=== PATIENT | female | born 1935 | race Caucasian/White ===

== ENCOUNTER 2018-04-21 06:38 | Inpatient (IN) ==
[2018-04-21] MEDS ORDERED: CeFAZolin Syr 2,000MG/20 ML 2,000 MG/20 ML SYRINGE IVPB ONE (07:21)
[2018-04-21] MEDS ORDERED: Ringers Solution, Lactated 1,000 ML IVC SCH (07:30)
[2018-04-21] MEDS ORDERED: Gabapentin 300 MG CAPSULE PO ONE (07:38)
[2018-04-21] MEDS ORDERED: Celecoxib 100 MG CAPSULE PO ONE (07:38)
[2018-04-21] MEDS ORDERED: Acetaminophen IV 1,000 MG/100 ML INFUS..BTL IVPB ONE (07:38)
[2018-04-21] MEDS ORDERED: Famotidine 20 MG/2 ML VIAL IVP ONE (07:38)
--- NOTE | 2018-04-21 07:47 | Anesthesia Evaluation PreOp ---
Date of Encounter: 04/21/18 Time of Encounter: 07:44 - Past History Planned Operation: Bronch, R robotic thoracoscopy resection thymoma Cardiac History: HTN, Hyperlipidemia Pulmonary History: Former smoker (quit 1969), Other (mediastinal mass) SE[employer] [employer]ER History: Denies Any Significant HX Other Medical History: Renal (stones), GERD Anesthesia History: No Prior Anesthetic Complications, Past Anesthesia (bobby, partial knee replacement, kidney stones) : No Alcohol Use: none Drug use: none Medications and Allergies Aspirin [Lo-Dose Aspirin EC] 81 mg PO DAILY 04/21/18 [History] Atorvastatin Calcium [Lipitor] 20 mg PO HS 04/21/18 [History] Calcium Carbonate [Calcium] 500 mg PO DAILY 04/21/18 [History] Multivitamin [One Daily Multivitamin] 1 tab PO DAILY 04/21/18 [History] Pyridoxine HCl [Vitamin B-6] 100 mg PO DAILY 04/21/18 [History] Triamterene/HCTZ 37.5/25mg [Dyazide] 1 tab PO DAILY 04/21/18 [History] Allergy/AdvReac Type Severity Reaction Status Date / Time No Known Allergies Allergy Verified 04/21/18 07:18 - Meds/Allergy Pre-op Review Medications Reviewed: Yes Allergies Reviewed: Yes Beta Blockers on Current Med List: No Anesthesia Results - Labs Laboratory Tests 04/05/18 04/05/18 12:21 12:21 WBC 6.6 Hgb 14.8 Hct 44.6 Plt Count 224 Sodium 142 Potassium 4.4 Chloride 103 Carbon Dioxide 29 BUN 23 Creatinine 0.92 Est GFR (Non-Af Amer) 59 L - Imaging EKG: report reviewed Anesthesia Exam Vital Signs/O2 Sat/Glucose, Most Recent Temp Pulse Resp BP Pulse Ox 98.2 F 70 18 135/75 97 04/21/18 07:05 04/21/18 07:05 04/21/18 07:05 04/21/18 07:05 04/21/18 07:05 Weight: 68 kg NPO (# of Hours): > 8 hr - HEENT Pupil (Motor): Pupils equal Mallampati: II Teeth: Normal - [employer] [employer] LOC: Oriented SE[employer] [place] [employer] Motor: Normal RUE, Normal LUE, Normal RLE, Normal LLE, Normal Face [employer] [place] [employer] Sensory: Normal: RUE, LUE, RLE, LLE, Face - Cardiac Rhythm: Regular Murmur: None - Pulmonary Breath Sounds: bilateral Clear Respiratory Effort: Symmetrical Anesthesia Assess/Plan ASA Score: 2 Level of consciousness: Cooperative, Oriented Anesthetic Plan: General Monitoring Plan: Standard Monitors Recovery Plan: PACU
[2018-04-21] MEDS ORDERED: *HR* Labetalol 20 MG/4 ML SYRINGE IVP PRN (07:48)
[2018-04-21] MEDS ORDERED: Ondansetron 4 MG/2 ML VIAL IVP ONE (07:48)
[2018-04-21] MEDS ORDERED: *HR* OxyCODONE Immed Rel 5 MG TABLET PO PRN (07:48)
[2018-04-21] MEDS ORDERED: Albuterol 2.5 MG/3 ML NEBULIZER IH PRN (07:48)
[2018-04-21] MEDS ORDERED: *HR* Promethazine 25 MG/ML VIAL IVP PRN (07:48)
--- NOTE | 2018-04-21 07:54 | History & Physical Report ---
Date of Encounter: 04/21/18 Time of Encounter: 07:53 24 Hour HP Update - Instructions Instructions: If the History and Physical is less than 30 days old and was completed prior to A.M. admission and or procedure and has NOT been updated on calendar day of procedure please complete this update prior to performing procedure. - Update Patient reports changes in Medical Condition: No Changes in examination, assessment, or condition: No Changes in Medication: No Preop tests/diagnostics Reviewed: Yes Pre-Op MRSA Screen: Negative Surgery Remains Indicated: Yes Consent for Planned Operative Procedure(s) Verified: Yes - Pre-Operative Checklist Preoperative Checklist Indicated: Yes Prophylactic Antibiotic Ordered: Yes Home Medications Include Beta Ann-Marie: No Beta Ann-Marie Taken Today (Day of Surgery): No Beta Ann-Marie Taken Yesterday (Day Prior to Surgery): No Is VTE Prophylaxis Indicated?: Yes
[2018-04-21] MEDS ORDERED: *HR* FentaNYL (PF) 100 MCG/2 ML VIAL ONE (07:55)
[2018-04-21] MEDS ORDERED: *HR* Propofol 200 MG/20 ML VIAL IVP ONE (07:55)
[2018-04-21] MEDS ORDERED: *HR* Rocuronium Bromide 50 MG/5 ML VIAL ONE (07:59)
[2018-04-21] MEDS ORDERED: Lidocaine -MPF 2% 2 ML VIAL ONE (07:59)
[2018-04-21] MEDS ORDERED: SUGAMMADEX SODIUM 500 MG/5 ML VIAL IV ONE (08:34)
[2018-04-21] MEDS ORDERED: Dexamethasone 4 MG/ML VIAL ONE (08:44)
[2018-04-21] MEDS ORDERED: Ondansetron 4 MG/2 ML VIAL ONE (08:44)
[2018-04-21] MEDS ORDERED: NiCARdipine 2.5 MG/10 ML Syringe IVPB ONE (09:02)
[2018-04-21] MEDS ORDERED: *HR* Labetalol 100 MG/20 ML MDV ONE (09:06)
--- NOTE | 2018-04-21 10:36 | Operative Note ---
Date of procedure: 04/21/18 Pre-op diagnosis: thymoma Post-op diagnosis: other (potential thymic cancer) Procedure: bronchoscopy with aspiration robotic right thoracoscopy thymectomy with wedge resection left upper lobe Complications: none Anesthesia: GETA Local Anesthetics: 0.5% Sensorcaine HCL SubQ (cc) Surgeon: Benitez Hernandez Was there an assistant teaching professor present: No Estimated blood loss (cc): 25 Specimen: thymus with left upper lobe wedge resection Condition: stable Disposition: PACU Procedure in Detail: The patient was brought to the operating room and placed on the operating room table in the supine position. After undergoing general anesthesia with sequential compressive devices on bilateral lower extremities and perioperative antibiotics on board diagnostic bronchoscopy was performed place the double- lumen endotracheal tube from the right mainstem bronchus into the left mainstem bronchus for adequate ventilation. This then allowed us to evaluate the tracheobronchial tree and thick copious tenacious secretions evacuated from the tracheobronchial tree patient was placed dermis semi-left lateral decubitus position with care to pad all pressure points. Prepped and draped in the usual sterile fashion. 3 thoracoscopy ports were placed thymectomy performed from the right phrenic nerve over to the left phrenic nerve the diaphragm up to the thyroid thymic ligament the mass seen on CT scan in the thymus was palpated but was adherent to the left upper lobe so a generous wedge resection was obtained of the left upper lobe to ensure negative margins. Hemostasis was excellent 24- Occitan blade chest tube was placed from the right chest over the mediastinum into the left chest. Intercostal nerve blocks performed. The chest tube was secured in the place with silk suture and the incisions closed with 0 Vicryl sutures and 4-0 Monocryl subcuticular stitches. Hemostasis was excellent patient was extubated and taken to the recovery room.
[2018-04-21] MEDS: *HR* HYDROmorphone (PF) 1 MG/ML SYRINGE IVP PRN ×3 (10:50→11:25)
[2018-04-21] MEDS ORDERED: 0.9 % Sodium Chloride 500 ML ONE (10:52)
--- NOTE | 2018-04-21 11:40 | Anesthesia Evaluation Post Op ---
Date of Encounter: 04/21/18 Time of Encounter: 11:40 - Vital Signs Vital Signs: Vital Signs/O2 Sat/Glucose, Most Current Temp Pulse Resp BP Pulse Ox 04/21/18 11:31 71 16 147/77 99 04/21/18 11:21 98.1 F 70 16 154/74 98 04/21/18 11:11 68 18 153/90 98 04/21/18 11:01 97.6 F 68 18 165/85 98 04/21/18 10:51 67 16 178/74 97 04/21/18 10:41 97.2 F L 70 18 154/82 97 04/21/18 10:31 96.7 F L 68 16 122/89 96 - Lungs Lungs: Clear Ascult./Percussion - Airway Airway: Non-obstructed - Cardiovascular Regular Rate - Mental Status Mental Status: Alert & Oriented, Answers Appropriately - Pain Pain Scale: 1 - Nausea Vomiting Nausea Vomiting: Not Present - Hydration Hydration: Ice chips - Discharge PostOp Status: Transfer Patient to floor
[2018-04-21] MEDS ORDERED: Ondansetron 4 MG/2 ML VIAL IVP PRN (12:09)
[2018-04-21] MEDS: *HR* HYDROmorphone 20 MG/20 ML PCA IVC SCH (13:31)
[2018-04-21] MEDS: Gabapentin 100 MG CAPSULE PO SCH ×2 (16:19→20:30)
[2018-04-21] MEDS: 0.9 % Sodium Chloride 1,000 ML IVC SCH (20:30)
[2018-04-22 05:00] LABS: Basophils % 0.1 %; Hematocrit 34.7 % (35.3-44.9); Hemoglobin 11.8 g/dL (11.5-15.4); Immature Granulocytes % 0.2 % (0-4); Lymphocytes # 0.8 K/mcL (0.6-4.6); Lymphocytes % 9.5 %; Mean Corpuscular Hemoglobin 31.1 pg (28.0-33.3); Mean Corpuscular Volume 91.6 fL (83.0-100.0); Mean Platelet Volume 10.5 fL (9.4-12.4); Monocytes # 0.7 K/mcL (0.0-1.3); Neutrophils # 6.7 K/mcL (1.6-8.9); Platelet Count 167 K/mcL (140-400); Red Blood Count 3.79 M/mcL (3.82-4.97); Red Cell Distribution Width 13.3 % (11.5-14.5); Segmented Neutrophils % 81.2 %
[2018-04-22 05:22] LABS: BUN/Creatinine Ratio 28 (6-26); Blood Urea Nitrogen 24 mg/dL (8-23); Calcium 8.8 mg/dL (8.6-10.3); Carbon Dioxide 26 mEq/L (23-29); Chloride 106 mEq/L (98-107); Glucose 135 mg/dL (70-105); Osmolality,Calculated 294 (280-300); Potassium 4.5 mEq/L (3.5-5.1); Sodium 139 mEq/L (136-145); eGFR For Non-African Americans > 60 (> 60)
[2018-04-22] MEDS: 0.9 % Sodium Chloride 1,000 ML IVC SCH (08:53)
[2018-04-22] MEDS: Gabapentin 100 MG CAPSULE PO SCH ×2 (08:54→15:21)
[2018-04-22] MEDS ORDERED: Aspirin Enteric Coated 81 MG Tablet PO SCH (09:00)
[2018-04-22 10:39] VITALS: BP 152/77
--- NOTE | 2018-04-22 12:27 | Discharge Summary ---
Orders not resulted at time of discharge: Pending orders 04/21/18 10:04 Surgical Pathology [PTH] Routine 04/23/18 08:00 XR chest 1V [XR] DAILY Date of Encounter: 04/22/18 Time of Encounter: 12:24 - Discharge Diagnosis (1) Thymic cancer Priority: Primary Status: Acute - Hospital Course Hospital course: Ms. Goldsmith is a 83 year old female - Time Spent with Patient Total time spent providing and/or coordinating discharge services: - Discharge Medications Prescriptions: No Action Triamterene/HCTZ 37.5/25mg [Dyazide] 1 tab PO DAILY Pyridoxine HCl [Vitamin B-6] 100 mg PO DAILY Multivitamin [One Daily Multivitamin] 1 tab PO DAILY Calcium Carbonate [Calcium] 500 mg PO DAILY Atorvastatin Calcium [Lipitor] 20 mg PO HS Aspirin [Lo-Dose Aspirin EC] 81 mg PO DAILY Home Medications: Aspirin [Lo-Dose Aspirin EC] 81 mg PO DAILY 04/21/18 [History] Atorvastatin Calcium [Lipitor] 20 mg PO HS 04/21/18 [History] Calcium Carbonate [Calcium] 500 mg PO DAILY 04/21/18 [History] Multivitamin [One Daily Multivitamin] 1 tab PO DAILY 04/21/18 [History] Pyridoxine HCl [Vitamin B-6] 100 mg PO DAILY 04/21/18 [History] Triamterene/HCTZ 37.5/25mg [Dyazide] 1 tab PO DAILY 04/21/18 [History] Allergies/Adverse Reactions: Allergy/AdvReac Type Severity Reaction Status Date / Time No Known Allergies Allergy Verified 04/21/18 07:18 Date of admission: 04/21/18 11:55 Primary care physician: Josie Kirk Procedure(s) Performed: robotic thymectomy and wedge resection of the left upper lobe Discharging clinician: Benitez Hernandez Anticipated date of discharge: 04/22/18 Physical Examination Vital Signs, Last 4 Hours Temp Pulse Resp BP Pulse Ox 04/22/18 10:35 98.1 F 69 19 152/77 97 General: Conversant, No Apparent Distress, Well developed, Well nourished HEENT: Atraumatic, Normocephaly Cardiac: Reg Rate and Rhythm, Normal S1 and S2, No Murmur Lungs: Normal Breath Sounds Neuro: Alert and responsive, Cranial nerves intact Abdomen: Soft, Non-tender - Patient Status Disposition: Home, Self-Care Condition: Fair Functional capacity at discharge: independent ambulation - Discharge Instructions Follow Up With: Josie Kirk DO [Primary Care Provider] - - Diet and Activity Activity: increase activity as tolerated (remove gauzes on wednesday. no driving if taking pain medications. ) Diet: advance to your usual diet - VTE Documentation of Mechanical Device: Intermittent pneumatic compression device
[2018-04-22] MEDS ORDERED: traMADol 50 MG TABLET PO PRN (12:41)
[2018-04-22] MEDS: *HR* HYDROmorphone 20 MG/20 ML PCA IVC SCH (14:18)
== END 2018-04-22 16:29 | disposition home or self-care (01) | DRG 804 ==
LOC: SAMDAY 06:38 → 2NENU 11:55
PROVIDERS: ADMIT Thoracic Surgery (Cardiothoracic Vascular Surgery); ATTEND Thoracic Surgery (Cardiothoracic Vascular Surgery)